=== PATIENT | male | born 1975 | race Two or more races ===

== ENCOUNTER 2024-07-17 08:50 | Emergency (ER) | payer MEDICAID, OTHER ==
[~2024-07-17] VITALS: Ht 172.7 cm; Wt 95.0 kg
[2024-07-17 09:15] VITALS: PULSE 86; RESP 16; O2SAT 94
[2024-07-17] MEDS ORDERED: HYD25TP TOP (10:48)
[2024-07-17] MEDS ORDERED: PRED1PAK9 PO (10:48)
[2024-07-17] MEDS ORDERED: EPIN0.1I11 IJ (10:48)
[2024-07-17] MEDS: diphenhdrAMINE HCL 50 MG/1 ML VL IV ONE (10:56)
[2024-07-17] MEDS: methylPREDNISolone SOD SUCC 125 MG/2 ML VL IV ONE (10:56)
[2024-07-17] MEDS: FAMOTIDINE (10MG/ML) 2ML VL IV ONE (10:57)
[2024-07-17 11:48] VITALS: BP 111/69; PULSE 97; RESP 16; O2SAT 95
== END 2024-07-17 13:12 | disposition home or self-care (01) ==
LOC: ER 08:50 → EDBD 08:50 → ER 13:12
DX: L50.0 Allergic urticaria (principal); T14.8XXA Other injury of unspecified body region, initial encounter; W57.XXXA Bitten or stung by nonvenomous insect and other nonvenomous arthropods, initial encounter; Y93.89 Activity, other specified; Y92.89 Other specified places as the place of occurrence of the external cause; Y99.8 Other external cause status
CPT/HCPCS: 96374; 96375; 99284; J1200; J2919; J3490

== ENCOUNTER 2024-10-17 16:39 | Emergency (ER) | payer SELFPAY ==
[~2024-10-17] VITALS: Ht 170.2 cm; Wt 85.2 kg
[~2024-10-17 16:39] MED LIST: EPIN0.1I11 IJ; HYD25TP TOP; PRED1PAK9 PO
[2024-10-17 18:26] VITALS: BP 140/85; PULSE 90; RESP 16; TEMP 98.9; O2SAT 94
[2024-10-17] MEDS: LIDOCAINE 1% HCL (LOCAL ANESTH.) INJ 20ML MDV IJ ONE (18:42)
[2024-10-17] MEDS: LIDOCAINE 1% HCL (LOCAL ANESTH.) INJ 20ML MDV ID ONE (19:09)
--- NOTE | 2024-10-17 19:24 | ED.PDOC ---
Chief Complaint: Laceration Time Seen by MD: 18:20 Primary Care Provider: UNKNOWN Reviewed Notes: Nurses Notes, Medications, Allergies Allergies: Coded Allergies: NO KNOWN ALLERGIES (Unverified , 07/17/24) Home Meds Active Scripts Tetanus Fidqzb-Ovjtwcuosz-Slfs (Adacel) Inj, 1 INJ IM ONCE for 1 Day, #1 INJ Prov:SIMI GREGORY [employer] OPERATOR 10/17/24 Amoxicillin & Pot Clavulanate (AUGMENTIN TABLET) 875 Mg Tb, 1 TAB PO BID for 7 Days, #14 TAB Prov:SIMI GREGORY [employer]AL OPERATOR 10/17/24 Hydrocortone (Hydrocortisone 2.5%) 1 Applic Ap, 1 APPLIC TOP BIDP PRN for 10 Days, #30 GRAMS Prov:DAYRON SCOTT MD 07/17/24 Prednisone (Prednisone) 10 Mg Irvin, 20 MG PO BID for 5 Days, #20 PACK Prov:DAYRON SCOTT MD 07/17/24 Epinephrine (Anaphylaxis) (Auvi-Q) 0.1 Mg/0.1 Ml Inj, 0.3 MG IJ O PRN for 1 Day, #1 INJ Prov:DAYRON SCOTT MD 07/17/24 Information Source: Patient Mode of Arrival: Ambulatory Past Medical History PAST MEDICAL HISTORY: Denies Family History Family History: Reviewed,noncontributory to illness Social History Smoker: Non-Smoker Drugs: Denies Drug Use Constitutional: denies: chills, diaphoresis, fatigue, fever, malaise, sweats, weakness, others EENTM: denies: blurred vision, double vision, ear bleeding, ear discharge, ear drainage, ear pain, ear ringing, eye pain, eye redness, hearing loss, mouth pain, mouth swelling, nasal discharge, nose bleeding, nose congestion, nose pain, photophobia, tearing, throat pain, throat swelling, voice changes, others Respiratory: denies: cough, hemoptysis, orthopnea, SOB at rest, shortness of breath, SOB with excertion, stridor, wheezing, others Cardiovascular: denies: chest pain, dizzy spells, diaphoresis, Dyspnea on exertion, edema, irregular heart beat, left arm pain, lightheadedness, palpitations, PND, syncope, others Gastrointestinal: denies: abdomen distended, abdominal pain, blood streaked bowels, constipated, diarrhea, dysphagia, difficulty swallowing, hematemesis, melena, nausea, poor appetite, poor fluid intake, rectal bleeding, rectal pain, vomiting, others Genitourinary: denies: burning, dysuria, flank pain, frequency, hematuria, incontinence, penile discharge, penile sore, pain, testicle pain, testicle swelling, urgency, others Neurological: denies: dizziness, fainting, headache, left sided numbness, left sided weakness, numbness, paresthesia, pre-existing deficit, right sided numbness, right sided weakness, seizure, speech problems, tingling, tremors, weakness, others Musculoskeletal: denies: back pain, gout, joint pain, joint swelling, muscle pain, muscle stiffness, neck pain, others Integumetry: reports: laceration (Top lip); denies: bruises, change in color, change in hair/nails, dryness, lesions, lumps, rash, wounds, others Allergic/Immunocompromised: denies: Difficulty Healing, Frequent Infections, Hives, Itching, others Hematologic/Lymphatic: denies: anemia, blood clots, easy bleeding, easy bruising, swollen glands, others Endocrine: denies: excessive hunger, excessive sweating, excessive thirst, excessive urination, flushing, intolerance to cold, intolerance to heat, unexplained weight gain, unexplained weight loss, others Psychiatric: denies: anxiety, bipolar disorder, depression, hopeless, panic disorder, schizophrenia, sleepless, suicidal, others Physical Exam General Appearance: No Apparent Distress, Normal HEENT: Normal ENT Inspection, Pharynx Normal, Other (Thickness laceration top middle lip across the margin bleeding controlled no noted foreign bodies teeth intact) Neck: Full Range of Motion, Non-Tender, Normal, Normal Inspection Respiratory: Lungs Clear, No Respiratory Distress, Normal Breath Sounds Cardiovascular: No Murmur, Normal Peripheral Pulses, Regular Rate/Rhythm Breast Exam: Deferred Gastrointestinal: Non Tender, Soft Genitalia: Deferred Pelvic: Deferred Rectal: Deferred Extremities: Normal capillary refill, Normal inspection, Normal range of motion, Non-tender, No pedal edema Musculoskeletal : Apperance: Normal Neurologic: Alert, 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 Was a procedure done?: No Differential diagnosis Generic Laceration: Laceration, Avulsion X-Ray, Labs, Meds, VS Vital Signs Date Time Temp Pulse Resp B/P (MAP) Pulse Ox O2 Delivery O2 Flow Rate FiO2 10/17/24 18:26 90 16 94 Room Air 10/17/24 18:26 98.9 90 16 140/85 (103) 94 98.9 10/17/24 17:03 98.9 90 16 140/85 (103) 94 Current Medications Medications (Trade) Dose Ordered Sig/Rigo Route Start Time Stop Time Status Last Admin Lidocaine HCl (Xylocaine 1%) 2.0ml ONCE ONCE IJ 10/17/24 18:45 10/17/24 18:46 DC 10/17/24 18:42 Lidocaine HCl (Xylocaine 1%) 3 ml ONCE ONCE ID 10/17/24 19:00 10/17/24 19:01 DC 10/17/24 19:09 Time of 1ST Reevaluation: 19:26 Reevaluation 1ST: Improved Patient Education/Counseling: Diagnosis, Treatment, Prognosis, Need For Follow Up Family Education/Counseling: No Family Present Departure 1 Departure Time of Disposition: 19:26 Impression: Primary Impression: Laceration of lip without complication Qualified Codes: S01.511A - Laceration without foreign body of lip, initial encounter Disposition: HOME / SELF CARE / HOMELESS Condition: Stable e-Prescriptions Tetanus Aeuebc-Xmrfsvmurf-Blmv (Adacel) Inj 1 INJ IM ONCE for 1 Day, #1 INJ Prov: SIMI GREGORY 10/17/24 Amoxicillin & Pot Clavulanate (AUGMENTIN TABLET) 875 Mg Tb 1 TAB PO BID for 7 Days, #14 TAB Prov: SIMI GREGORY 10/17/24 Discharged With: Self Critical Care Note Critical Care Time?: No Stability Stability form required: SIMI Arellano Oct 17, 2024 19:24
[2024-10-17] MEDS ORDERED: AUG875T PO (19:28)
[2024-10-17] MEDS: TETANUS-DIPTH-ACEL PERTUSSIS 0.5ML SYR Tdap IM ONE (19:32)
[2024-10-17] MEDS ORDERED: [UNRECOGNIZED DRUG - CODE] IM (19:33)
== END 2024-10-17 19:39 | disposition home or self-care (01) ==
LOC: ER 16:39
DX: S01.511A Laceration without foreign body of lip, initial encounter (principal); W26.0XXA Contact with knife, initial encounter; Y93.89 Activity, other specified; Z79.899 Other long term (current) drug therapy; Y92.89 Other specified places as the place of occurrence of the external cause; Y99.8 Other external cause status
CPT/HCPCS: J2003